=== PATIENT | female | born 1945 | race Caucasian/White ===

== ENCOUNTER → 2017-11-05 | Outpatient (CLI) | payer MEDICARE, OTHER ==
[~2017-11-05] MED LIST: ATENOLOL 25 MG25 M1 PO; ATORVASTATIN CA10 MG; BAYER CHEWABLE81 MG PO; BUMETANIDE PO; BUMETANIDE2 M1; CALCIUM 600 +1 EAC1 PO; CALCIUM 600 MG1 EAC3; IBUPROFEN 400400 M2 PO; KEPPRA 500 MG500 M1 PO; LIPITOR 20 MG T20 M1 PO; MAGNESIUM PO; MAGNESIUM250 M1; MAGOX 400400 MG PO; MILLIPRED DP5 M1 PO; POTASSIUM20; POTASSIUM20 PO; PRED FORTE 1% EY5 M1 OPHTHALMIC; SYNTHROID75 MCG PO; SYSTANE 0.3-0.1 EACH OTIC; SYSTANE BALANCE10 ML OPHTHALMIC; SYSTANE1 EACH TP; VITAMIN D1000 UNI1; VITAMIN D2000 UNIT PO; XANAX 0.5 MG0.5 MG PO
== END ==
LOC: M.RAD 09:59
DX: Z12.31 Encounter for screening mammogram for malignant neoplasm of breast (principal)